=== PATIENT | male | born 1995 ===

== ENCOUNTER 2024-09-21 23:35 | Emergency (ER) | payer SELFPAY ==
[~2024-09-21] VITALS: Ht 185.4 cm; Wt 73.9 kg
[2024-09-21] MEDS ORDERED: SEROQUEL100 MG PO (23:41)
[2024-09-21] MEDS ORDERED: QUETIAPINE FUMARATE 100 MG TAB PO ONE (23:45)
[2024-09-22] MEDS ORDERED: SEROQUEL200 MG PO (00:29)
[2024-09-22 01:07] VITALS: BP 116/70
== END 2024-09-22 01:07 | disposition home or self-care (01) ==
LOC: ED 23:35
DX: F20.9 Schizophrenia, unspecified (principal); Z76.0 Encounter for issue of repeat prescription; Z88.8 Allergy status to other drugs, medicaments and biological substances; Z79.899 Other long term (current) drug therapy
CPT/HCPCS: 99282; A9270